=== PATIENT | male | born 1985 | race Caucasian/White ===

== ENCOUNTER 2016-08-28 10:23 | Emergency (ER) | payer MEDICAID ==
[~2016-08-28] VITALS: Ht 172.7 cm; Wt 82.6 kg
--- NOTE | 2016-08-28 10:31 | NUR ---
PT BIB CC: CHEST PAIN X 1 DAY, HX OF ANXIETY, COUGHED UP PHLEM THIS MORNING. PLACED ON MONITOR. VSS. AWAITING MD ORDER.
[2016-08-28] MEDS ORDERED: HYDROCODONE/APAP 5/325MG 1 EACH TABLET ONE (10:58)
--- NOTE | 2016-08-28 10:59 | NUR ---
RAC #[id number] IV ACCESS. BLOOD SAMPLE COLLECTED SENT TO LAB
[2016-08-28] MEDS ORDERED: HYDROCODONE/APAP 5/325MG 1 EACH TABLET PO ONE (11:00)
[2016-08-28 11:01] LABS: BASOPHILS # (AUTO) 0.2 /CMM (0.0-0.2); BASOPHILS % (AUTO) 2.7 % (0.0-2.0); EOSINOPHILS # (AUTO) 0.3 /CMM (0.0-0.7); EOSINOPHILS % (AUTO) 4.2 % (0.0-6.0); HEMATOCRIT 38 % (39-51); HEMOGLOBIN 12.6 g/dL (13.5-17.5); LYMPHOCYTES # (AUTO) 1.2 /CMM (0.8-4.8); LYMPHOCYTES % (AUTO) 19.1 % (20.0-44.0); MEAN CORPUSCULAR HEMOGLOBIN 26 PG (26.0-33.0); MEAN CORPUSCULAR HGB CONC 33 g/dl (31.0-36.0); MEAN CORPUSCULAR VOLUME 81 fL (80-96); MONOCYTES # (AUTO) 0.5 /CMM (0.1-1.30); MONOCYTES % (AUTO) 8.7 % (2.0-12.0); NEUTROPHILS % (AUTO) 65.3 % (43.0-81.0); PLATELET COUNT (AUTO) 281 /CMM (150-450); RDW COEFFICIENT OF VARIATION 12.3 (11.5-15.0); RED BLOOD CELL COUNT(AUTO) 4.77 MIL/uL (4.5-6.0); WHITE BLOOD COUNT (AUTO) 6.2 K/uL (4.3-11.0)
[2016-08-28 11:05] LABS: CALCIUM, SERUM 8.9 mg/dL (8.5-10.1); CARBON DIOXIDE 31 mmol/L (21-32); CHLORIDE 104 mmol/L (98-107); CREATININE 0.9 mg/dL (0.6-1.3); GFR 100 mL/min (>60); GLUCOSE 96 mg/dL (74-106); POTASSIUM 4.3 mmol/L (3.5-5.1); SODIUM SERUM 140 mmol/L (136-145); UREA NITROGEN, BLOOD 12 mg/dL (7-18)
[2016-08-28 11:11] LABS: ALANINE AMINOTRANSFERASE 19 U/L (12-78); ALBUMIN 3.7 g/dL (3.4-5.0); ALKALINE PHOSPHATASE 60 U/L (46-116); ASPARTATE AMINOTRANSFERASE 15 U/L (15-37); BILIRUBIN,DIRECT 0.1 mg/dL (0.0-0.2); BILIRUBIN,TOTAL 0.6 mg/dL (0.2-1.0); LIPASE 71 U/L (73-393); TOTAL PROTEIN, SERUM 7.4 g/dL (6.4-8.2)
[2016-08-28 11:13] LABS: TROPONIN I < 0.017 ng/mL (0.00-0.056)
--- NOTE | 2016-08-28 11:30 | NUR ---
PT TAKEN TO ULTRASOUND
[2016-08-28 12:51] VITALS: BP 119/59
--- NOTE | 2016-08-28 12:52 | NUR ---
Patient discharged to home in stable condition. Written and verbal after care instructions given. Patient verbalizes understanding of instruction.IV removed. Catheter intact and site benign. Pressure and 4x4 applied to site. No bleeding noted. ambulatory with steady gait. no further complaints.
== END 2016-08-28 12:52 | disposition home or self-care (01) ==
LOC: EDUNIT# 10:23 → ER 10:24
DX: R07.2 Precordial pain (principal); Z88.0 Allergy status to penicillin
CPT/HCPCS: 36415; 71010-TC; 76705-TC; 80048-TC; 80076-TC; 83690-TC; 84484-TC; 85025-TC; A4606; Z7610

== ENCOUNTER 2016-11-22 11:22 | Emergency (ER) | payer MEDICAID ==
[~2016-11-22] VITALS: Ht 162.6 cm; Wt 83.9 kg
[2016-11-22 11:33] VITALS: BP 122/68
== END 2016-11-22 12:03 | disposition home or self-care (01) ==
LOC: ER 11:24
DX: J02.9 Acute pharyngitis, unspecified (principal); Z88.0 Allergy status to penicillin
CPT/HCPCS: 99281; A4606; Z7610; Z7502

== ENCOUNTER 2017-01-30 21:05 | Emergency (ER) | payer MEDICAID ==
[~2017-01-30] VITALS: Ht 167.6 cm; Wt 83.9 kg
[2017-01-30 21:25] VITALS: BP 134/76
== END 2017-01-30 22:27 | disposition home or self-care (01) ==
LOC: ER 21:10
DX: H10.30 Unspecified acute conjunctivitis, unspecified eye (principal); Z88.0 Allergy status to penicillin
CPT/HCPCS: 99283; A4606; Z7610

== ENCOUNTER → 2017-04-02 | Emergency (ER) | payer MEDICAID ==
[~2017-04-02] VITALS: Ht 167.6 cm; Wt 81.6 kg
[~2017-04-02] MED LIST: ACETAMINOPHEN ES 500 MG TABLET ONE; KETOROLAC TROMETHAMINE 15 MG/ML VIAL ONE
--- NOTE | 2017-04-02 18:58 | NUR ---
PT STATED FEELING LEFT ABD PAIN FOR ONE WEEK COGHING UP DARK RED AWAITING EVALUATION BY ER PROVIDER.
--- NOTE | 2017-04-02 19:13 | NUR ---
Patient discharged to home in stable condition. Written and verbal after care instructions given. Patient verbalizes understanding of instruction. INSTRUCTED TO TAKE ALL MEDS DIRECTED
--- NOTE | 2017-04-02 19:28 | NUR ---
PT AWAKE AND ALERT, STATING LLQ PAIN FOR 1 WEEK WORSE TODAY. PT STATES COUGHED UP BLOODY MUCUS 3-4 TIMES, BRIGHT RED MOSTLY MUCUS. 18G IV STARTED LT AC, LAB TO PT BEDSIDE FOR BLOOD DRAW WITH CULTURES. VSS PT IN NAD AT THIS TIME
[2017-04-02 19:33] LABS: BASOPHILS # (AUTO) 0.1 /CMM (0.0-0.2); BASOPHILS % (AUTO) 1.3 % (0.0-2.0); EOSINOPHILS # (AUTO) 0.2 /CMM (0.0-0.7); EOSINOPHILS % (AUTO) 3.1 % (0.0-6.0); HEMATOCRIT 41 % (39-51); HEMOGLOBIN 13.5 g/dL (13.5-17.5); LYMPHOCYTES # (AUTO) 1.7 /CMM (0.8-4.8); LYMPHOCYTES % (AUTO) 22.5 % (20.0-44.0); MEAN CORPUSCULAR HEMOGLOBIN 27 PG (26.0-33.0); MEAN CORPUSCULAR HGB CONC 33 g/dl (31.0-36.0); MEAN CORPUSCULAR VOLUME 80 fL (80-96); MONOCYTES # (AUTO) 0.8 /CMM (0.1-1.30); MONOCYTES % (AUTO) 10.3 % (2.0-12.0); NEUTROPHILS # (AUTO) 4.8 /CMM (1.8-8.9); NEUTROPHILS % (AUTO) 62.8 % (43.0-81.0); PLATELET COUNT (AUTO) 276 /CMM (150-450); RDW COEFFICIENT OF VARIATION 12.6 (11.5-15.0); RED BLOOD CELL COUNT(AUTO) 5.06 MIL/uL (4.5-6.0); WHITE BLOOD COUNT (AUTO) 7.6 K/uL (4.3-11.0)
[2017-04-02] MEDS: IV NS 0.9% 1,000 ML BAG IV ONE (19:40)
[2017-04-02] MEDS: KETOROLAC TROMETHAMINE INJ 30 MG/ML VIAL IV ONE (19:40)
[2017-04-02 19:42] LABS: CALCIUM, SERUM 9.5 mg/dL (8.5-10.1); CREATININE 0.8 mg/dL (0.6-1.3); POTASSIUM 4.1 mmol/L (3.5-5.1)
[2017-04-02] MEDS: ACETAMINOPHEN ES 500 MG TABLET PO ONE (19:42)
--- NOTE | 2017-04-02 19:45 | NUR ---
PT MEDICATED FOR PAIN, CXR DONE AT BEDSIDE, TAKEN TO CT VIA WHEELCHAIR, PT STABLE FOR TRANSPORT
[2017-04-02 19:46] LABS: INR 1.01 (0.87-1.13); PROTHROMBIN TIME 10.5 SECS (9.5-12.7)
[2017-04-02 19:47] LABS: BILIRUBIN,DIRECT 0.1 mg/dL (0.0-0.2); BILIRUBIN,TOTAL 0.5 mg/dL (0.2-1.0)
[2017-04-02 23:37] VITALS: BP 101/68
== END | disposition home or self-care (01) ==
LOC: ER 18:12
DX: R10.32 Left lower quadrant pain (principal); J40 Bronchitis, not specified as acute or chronic; Z88.0 Allergy status to penicillin
CPT/HCPCS: 36415; 71010-TC; 80048-TC; 80076-TC; 83690-TC; 85025-TC; 85730-TC; 87040-TC; A4606; J1885; Z7610

== ENCOUNTER 2017-10-21 01:03 | Emergency (ER) | payer MEDICAID, OTHER ==
[~2017-10-21] VITALS: Ht 167.6 cm; Wt 90.7 kg
[2017-10-21 01:14] VITALS: BP 120/74
--- NOTE | 2017-10-21 01:35 | NUR ---
PT LEFT WITHOUT D/C PAPERWORK.
== END 2017-10-21 01:36 | disposition home or self-care (01) ==
LOC: ER 01:06
DX: J02.9 Acute pharyngitis, unspecified (principal); Z88.0 Allergy status to penicillin
CPT/HCPCS: A4606; Z7502; Z7610

== ENCOUNTER 2018-06-02 11:09 | Emergency (ER) | payer OTHER ==
[~2018-06-02] VITALS: Ht 170.2 cm; Wt 93.4 kg
[2018-06-02 11:17] VITALS: BP 130/86
== END 2018-06-02 13:00 | disposition home or self-care (01) ==
LOC: ER 11:10
DX: J40 Bronchitis, not specified as acute or chronic (principal); H61.23 Impacted cerumen, bilateral; Z88.0 Allergy status to penicillin; Z60.2 Problems related to living alone
CPT/HCPCS: 71045-TC

== ENCOUNTER 2018-12-07 05:45 | Emergency (ER) | payer OTHER ==
[~2018-12-07] VITALS: Ht 167.6 cm; Wt 90.7 kg
[2018-12-07 05:54] VITALS: BP 133/87
== END 2018-12-07 06:14 | disposition home or self-care (01) ==
LOC: ER 05:59
DX: J02.0 Streptococcal pharyngitis (principal); J45.909 Unspecified asthma, uncomplicated; Z88.0 Allergy status to penicillin; Z60.2 Problems related to living alone

== ENCOUNTER 2019-10-24 11:44 | Emergency (ER) | payer OTHER ==
[~2019-10-24] VITALS: Ht 167.6 cm; Wt 99.8 kg
[2019-10-24 15:06] VITALS: BP 122/74
--- NOTE | 2019-10-24 15:06 | NUR ---
Breathing even and unlabored, no sob noted, needs attended. Patient discharged to home in stable condition. Written and verbal after care instructions given. Patient verbalizes understanding of instruction.
== END 2019-10-24 15:06 | disposition home or self-care (01) ==
LOC: ER 11:49
DX: J06.9 Acute upper respiratory infection, unspecified (principal); J45.909 Unspecified asthma, uncomplicated; Z88.0 Allergy status to penicillin; Z60.2 Problems related to living alone
CPT/HCPCS: 71045-TC

== ENCOUNTER 2020-03-24 15:44 | Emergency (ER) | payer SELFPAY ==
[~2020-03-24] VITALS: Ht 167.6 cm; Wt 83.9 kg
[2020-03-24 15:54] VITALS: BP 151/90
--- NOTE | 2020-03-24 16:29 | NUR ---
Patient discharged to home in stable condition. Written and verbal after care instructions given. Patient verbalizes understanding of instruction. Pt ambulatory with a steady gait
== END 2020-03-24 16:29 | disposition home or self-care (01) ==
LOC: ER 15:55
DX: J03.90 Acute tonsillitis, unspecified (principal); J45.909 Unspecified asthma, uncomplicated; Z88.0 Allergy status to penicillin; Z60.2 Problems related to living alone

== ENCOUNTER 2021-05-18 15:56 | Emergency (ER) | payer SELFPAY ==
[~2021-05-18] VITALS: Ht 167.6 cm; Wt 90.7 kg
--- NOTE | 2021-05-18 17:43 | NUR ---
SEEN AND EXAMINED BY ISAC TRAMMELL
[2021-05-18] MEDS ORDERED: IV NS 0.9% 1,000 ML BAG IV ONE (18:00)
--- NOTE | 2021-05-18 18:00 | NUR ---
IV LINE ESTABLISHED BLOOD DRAWN AND SENT TO LAB.
[2021-05-18 18:47] LABS: OCCULT BLOOD STOOL NEGATIVE (NEGATIVE)
[2021-05-18 19:06] LABS: BASOPHILS # (AUTO) 0.1 K/uL (0.0-0.2); BASOPHILS % (AUTO) 2.1 % (0.0-2.0); EOSINOPHILS % (AUTO) 2.3 % (0.0-6.0); HEMATOCRIT 41 % (39-51); HEMOGLOBIN 13.3 g/dL (13.5-17.5); LYMPHOCYTES # (AUTO) 1.2 K/uL (0.8-4.8); MEAN CORPUSCULAR HGB CONC 33 g/dl (31.0-36.0); MEAN CORPUSCULAR VOLUME 80 fL (80-96); MONOCYTES # (AUTO) 0.5 K/uL (0.1-1.30); MONOCYTES % (AUTO) 16.5 % (2.0-12.0); NEUTROPHILS # (AUTO) 1.3 K/uL (1.8-8.9); NEUTROPHILS % (AUTO) 40.1 % (43.0-81.0); PLATELET COUNT (AUTO) 289 K/uL (150-450); RED BLOOD CELL COUNT(AUTO) 5.14 MIL/uL (4.5-6.0); WHITE BLOOD COUNT (AUTO) 3.1 K/uL (4.3-11.0)
[2021-05-18 19:17] LABS: CALCIUM, SERUM 8.2 mg/dL (8.5-10.1); CREATININE 0.8 mg/dL (0.6-1.3); POTASSIUM 3.3 mmol/L (3.5-5.1)
--- NOTE | 2021-05-18 19:30 | NUR ---
BIBS c/o constipation and epigastric pain x 4 days, blood in the stool x today. breathing even and unlabored changed into gown and placed on monitor and all v/s stable.
[2021-05-18 19:52] LABS: BILIRUBIN,URINE NEGATIVE (NEGATIVE); COLOR,URINE YELLOW (YELLOW); LEUKOCYTE ESTERASE ,URINE NEGATIVE (NEGATIVE); NITRITE, URINE NEGATIVE (NEGATIVE); PROTEIN,URINE NEGATIVE (NEGATIVE); UGLUCOSE NEGATIVE (NEGATIVE); UROBILINOGEN,URINE 0.2 EU/dL (0.2)
[2021-05-18] MEDS ORDERED: ACET-2605 PO (20:18)
[2021-05-18 20:19] LABS: EOSINOPHILS % (MANUAL) 1 % (0-4); LYMPHOCYTES % (MANUAL) 33 % (16-48); MONOCYTES % (MANUAL) 16 % (0-11.0); NEUTROPHILS % (MANUAL) 50 (42-76)
[2021-05-18] MEDS ORDERED: POTASSIUM CHLORIDE 20 MEQ TAB.PRT.SR PO ONE ×2 (20:30→20:43)
--- NOTE | 2021-05-18 20:51 | NUR ---
Patient discharged to home in stable condition. Written and verbal after care instructions given. Patient verbalizes understanding of instruction. IV line discontinued and gentle pressure applied to site without incident.
[2021-05-18 20:54] VITALS: BP 124/66
== END 2021-05-18 20:54 | disposition home or self-care (01) ==
LOC: ER 16:00
DX: K92.1 Melena (principal); Z88.0 Allergy status to penicillin
CPT/HCPCS: 36415; 80048; 81003; 82272; 85007; 85025; 85730; 96360; 99283; J7030

== ENCOUNTER 2022-03-06 00:27 | Emergency (ER) | payer SELFPAY ==
[~2022-03-06] VITALS: Ht 167.6 cm; Wt 90.7 kg
[~2022-03-06 00:27] MED LIST changes: +ACET-2605 PO; -ACETAMINOPHEN ES 500 MG TABLET ONE; -KETOROLAC TROMETHAMINE 15 MG/ML VIAL ONE
--- NOTE | 2022-03-06 01:10 | NUR ---
BIBSELF C/O COLITIS FLARE UP, TROUBLE WITH BM. PATIENT IS AAOX4. ABLE TO MAKE NEEDS KNOWN. AMBULATORY. PLACED COMFORTABLY IN BED. VITALS CHECKED.
--- NOTE | 2022-03-06 01:55 | NUR ---
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
--- NOTE | 2022-03-06 02:03 | NUR ---
COVID SWAB DONE
[2022-03-06] MEDS ORDERED: IOHEXOL-300 100 ML VIAL IV ONE (02:16)
[2022-03-06] MEDS ORDERED: IV NS 0.9% 250 ML IV ONE (02:17)
[2022-03-06] MEDS ORDERED: CT SWABBABLE VALVE TRANS SET 1 EA INFUS.SET MC ONE (02:17)
[2022-03-06 02:21] LABS: CALCIUM, SERUM 9.1 mg/dL (8.5-10.1); CREATININE 0.9 mg/dL (0.6-1.3); POTASSIUM 4.3 mmol/L (3.5-5.1)
[2022-03-06 02:27] LABS: ALBUMIN 3.5 g/dL (3.4-5.0); BILIRUBIN,DIRECT 0.1 mg/dL (0.0-0.2); BILIRUBIN,TOTAL 0.4 mg/dL (0.2-1.0); TOTAL PROTEIN, SERUM 7.6 g/dL (6.4-8.2)
--- NOTE | 2022-03-06 02:43 | NUR ---
IV CANNULA G20 INSERTED ON RIGHT AC. FLUSHED WITH NS. LINE IS PATENT.
[2022-03-06 03:30] LABS: BASOPHILS # (AUTO) 0.1 K/uL (0.0-0.2); BASOPHILS % (AUTO) 0.6 % (0.0-2.0); EOSINOPHILS % (AUTO) 4.5 % (0.0-6.0); HEMATOCRIT 37 % (39-51); HEMOGLOBIN 11.9 g/dL (13.5-17.5); LYMPHOCYTES # (AUTO) 5.2 K/uL (0.8-4.8); MEAN CORPUSCULAR HGB CONC 32 g/dl (31.0-36.0); MEAN CORPUSCULAR VOLUME 78 fL (80-96); MONOCYTES # (AUTO) 1.2 K/uL (0.1-1.30); MONOCYTES % (AUTO) 13.4 % (2.0-12.0); NEUTROPHILS % (AUTO) 22.5 % (43.0-81.0); PLATELET COUNT (AUTO) 279 K/uL (150-450); WHITE BLOOD COUNT (AUTO) 8.8 K/uL (4.3-11.0)
[2022-03-06] MEDS ORDERED: DOCU-141 PO (04:48)
--- NOTE | 2022-03-06 07:04 | NUR ---
IV CANNULA REMOVED.
--- NOTE | 2022-03-06 07:05 | NUR ---
Patient discharged to home in stable condition. Written and verbal after care instructions given. Patient verbalizes understanding of instruction.
[2022-03-06 07:06] VITALS: BP 144/64
[2022-03-06 09:51] LABS: EOSINOPHILS % (MANUAL) 7 % (0-4); LYMPHOCYTES % (MANUAL) 51 % (16-48); MONOCYTES % (MANUAL) 12 % (0-11.0); NEUTROPHILS % (MANUAL) 30 (42-76)
== END 2022-03-06 07:07 | disposition home or self-care (01) ==
LOC: EDUNIT# 00:27 → ER 00:35
DX: R10.9 Unspecified abdominal pain (principal); K64.8 Other hemorrhoids; R05.9 Cough, unspecified; Z20.822 Contact with and (suspected) exposure to COVID-19; J45.909 Unspecified asthma, uncomplicated; Z87.01 Personal history of pneumonia (recurrent)
CPT/HCPCS: 99285; 74177; 71045; 87426; 85025; 80048; 83690; 80076; 36415; 85730; 85007; J7050; Q9967; C9803

== ENCOUNTER 2022-03-10 18:07 | Emergency (ER) | payer SELFPAY ==
[~2022-03-10] VITALS: Ht 167.6 cm; Wt 87.5 kg
[~2022-03-10 18:07] MED LIST changes: +DOCU-141 PO
[2022-03-10 18:26] VITALS: BP 134/84
--- NOTE | 2022-03-10 18:56 | NUR ---
RT CALLED FOR BREATHING TX
[2022-03-10] MEDS ORDERED: ALBUTEROL FS 2.5 MG/3 ML VIAL.NEB CONTNEB ONE (19:00)
[2022-03-10] MEDS ORDERED: predniSONE 20 MG TABLET ONE (19:00)
[2022-03-10] MEDS ORDERED: IPRATROPIUM NEB FS 0.5 MG/2.5 ML AMPUL.NEB NEB ONE (19:00)
[2022-03-10] MEDS ORDERED: predniSONE 20 MG TABLET PO ONE (19:00)
[2022-03-10] MEDS ORDERED: cetrizine 10 MG TABLET PO ONE (19:00)
[2022-03-10] MEDS ORDERED: cetrizine 10 MG TABLET ONE (19:00)
[2022-03-10] MEDS ORDERED: GUAIFENESIN/D-METHORPHAN HB 5 ML UDC ONE (19:00)
--- NOTE | 2022-03-10 19:10 | NUR ---
PO meds given violeta well
[2022-03-10] MEDS: GUAIFENESIN/CODEINE 10 ML UDC PO PRN (19:12)
[2022-03-10] MEDS ORDERED: ALBUTEROL FS 2.5 MG/3 ML VIAL.NEB ONE (19:35)
[2022-03-10] MEDS ORDERED: IPRATROPIUM NEB FS 0.5 MG/2.5 ML AMPUL.NEB ONE (19:35)
--- NOTE | 2022-03-10 19:39 | NUR ---
RT AT BEDSIDE
[2022-03-10] MEDS ORDERED: ALBUTEROL FS 2.5 MG/3 ML VIAL.NEB NEB ONE (20:00)
[2022-03-10] MEDS ORDERED: CETI-90 PO (20:06)
[2022-03-10] MEDS ORDERED: ALBU6.7H9 INH (20:06)
[2022-03-10] MEDS ORDERED: PRED50TA PO (20:06)
[2022-03-10] MEDS ORDERED: BENZ-13 PO (20:06)
--- NOTE | 2022-03-10 20:11 | NUR ---
Patient discharged to home in stable condition. Written and verbal after care instructions given. Patient verbalizes understanding of instruction.PT ambulatory with a steady gait
[2022-03-11] MEDS ORDERED: hydrALAZINE HCL IV 20 MG VIAL ONE (09:11)
[2022-03-11] MEDS ORDERED: ONDANSETRON HCL/PF 4 MG/2 ML VIAL ONE (09:32)
== END 2022-03-10 20:11 | disposition home or self-care (01) ==
LOC: ER 18:29
DX: J45.909 Unspecified asthma, uncomplicated (principal); R05.1 Acute cough; T78.49XA Other allergy, initial encounter; Z88.0 Allergy status to penicillin; Z60.2 Problems related to living alone; Z79.899 Other long term (current) drug therapy; X58.XXXA Exposure to other specified factors, initial encounter
CPT/HCPCS: 99284; 71045; 94640; J7512; J0360; J2405

== ENCOUNTER 2023-05-30 13:28 | Emergency (ER) | payer MEDICAID ==
[~2023-05-30] VITALS: Ht 170.2 cm; Wt 97.5 kg
[~2023-05-30 13:28] MED LIST changes: +ALBU6.7H9 INH; +BENZ-13 PO; +PRED50TA PO
[2023-05-30] MEDS ORDERED: IV NS 0.9% 1,000 ML BAG IV ONE (15:00)
[2023-05-30 15:11] LABS: BASOPHILS % (AUTO) 0.4 % (0.0-2.0); EOSINOPHILS # (AUTO) 0.3 K/uL (0.0-0.7); EOSINOPHILS % (AUTO) 3.2 % (0.0-6.0); HEMATOCRIT 41 % (39-51); HEMOGLOBIN 13.1 g/dL (13.5-17.5); LYMPHOCYTES # (AUTO) 1.9 K/uL (0.8-4.8); MEAN CORPUSCULAR HEMOGLOBIN 26 PG (26.0-33.0); MEAN CORPUSCULAR HGB CONC 32 g/dl (31.0-36.0); MEAN CORPUSCULAR VOLUME 81 fL (80-96); MONOCYTES # (AUTO) 1.7 K/uL (0.1-1.30); MONOCYTES % (AUTO) 17.8 % (2.0-12.0); NEUTROPHILS # (AUTO) 5.4 K/uL (1.8-8.9); NEUTROPHILS % (AUTO) 58.6 % (43.0-81.0); PLATELET COUNT (AUTO) 292 K/uL (150-450); RED BLOOD CELL COUNT(AUTO) 5.02 MIL/uL (4.5-6.0); RED CELL DISTRIBUTION WIDTH 12.8 % (11.5-15.0); WHITE BLOOD COUNT (AUTO) 9.3 K/uL (4.3-11.0)
[2023-05-30 15:26] LABS: ALBUMIN 3.3 g/dL (3.4-5.0); BILIRUBIN,DIRECT 0.2 mg/dL (0.0-0.2); BILIRUBIN,TOTAL 0.8 mg/dL (0.2-1.0); CREATININE 0.7 mg/dL (0.6-1.3); POTASSIUM 3.3 mmol/L (3.5-5.1); TOTAL PROTEIN, SERUM 7.9 g/dL (6.4-8.2)
[2023-05-30] MEDS ORDERED: CIPR500T5 PO (16:13)
[2023-05-30 16:33] VITALS: BP 141/87; TEMP 98; O2SAT 99
[2023-05-30 21:24] LABS: ANISOCYTOSIS 1+; EOSINOPHILS % (MANUAL) 6 % (0-4); LYMPHOCYTES % (MANUAL) 24 % (16-48); MONOCYTES % (MANUAL) 12 % (0-11.0); NEUTROPHILS % (MANUAL) 58 (42-76); PLATELET ESTIMATE ADEQUATE; ROULEAUX 1+; STOMATOCYTES 1+
== END 2023-05-30 16:33 | disposition home or self-care (01) ==
LOC: ER 13:35
DX: K52.9 Noninfective gastroenteritis and colitis, unspecified (principal); R10.9 Unspecified abdominal pain; J45.909 Unspecified asthma, uncomplicated; Z79.899 Other long term (current) drug therapy; Z88.0 Allergy status to penicillin
CPT/HCPCS: 99284; 74176; 96360; 85025; 80048; 83690; 80076; 36415; 85007; J7030